=== PATIENT | male | born 1960 | race Caucasian/White ===

== ENCOUNTER 2017-05-15 11:02 | Inpatient (IN) | payer OTHER ==
[~2017-05-15] VITALS: Ht 180.3 cm; Wt 103.2 kg
[~2017-05-15 11:02] MED LIST: ALFU10TA2 PO; AMLO10TA2 PO; CARV25TA PO; CLONI1TA PO; ECOT81TA5 PO; FINA5TAB2 PO; HYDR200T3 PO; LATA5OPD OU; MAGN400C2 PO; PANT40TA2 PO; TRAZ-136 PO
[2017-05-15] MEDS ORDERED: VITA200015 PO (11:19)
[2017-05-15] MEDS ORDERED: ATOR80TA59 PO (11:19)
[2017-05-15] MEDS ORDERED: BRIL90TA PO (11:19)
[2017-05-15] MEDS ORDERED: HYDR-3719 PO (11:19)
[2017-05-15] MEDS ORDERED: ISOS60TA2 PO (11:19)
[2017-05-15] MEDS ORDERED: NS 1,000 ML IV ONE (11:30)
[2017-05-15] MEDS ORDERED: MORPHINE 4 MG/ML 1ML SYRINGE IV ONE ×2 (11:45→15:00)
[2017-05-15] MEDS ORDERED: ONDANSETRON 4MG/2ML VIAL (J2405) IV ONE (11:45)
[2017-05-15 11:48] LABS: BASO # 0.1 10^3/uL (0.0-0.2); BASO % 0.3 % (0.0-1.0); IMMATURE GRANULOCYTE % 0.5 % (0-0); LYMPH % 13.4 % (24.0-44.0); MEAN CORPUSCULAR HEMOGLOBIN 31.7 pg (27.0-33.0); MEAN CORPUSCULAR HGB CONC 34.8 g/dl (32.0-36.5); MEAN CORPUSCULAR VOLUME 91.1 fl (80.0-96.0); MONO # 1.1 10^3/uL (0.0-0.8); MONO % 7.5 % (0.0-5.0); NEUTROPHILS # 11.8 10^3/uL (1.8-7.7); NEUTROPHILS % 78.3 % (36.0-66.0); PLATELET COUNT, AUTOMATED 266 10^3/uL (150-450); RED CELL DISTRIBUTION WIDTH 13.9 % (11.5-14.5)
[2017-05-15 12:09] LABS: ALBUMIN 3.8 GM/DL (3.2-5.2); ALBUMIN/GLOBULIN RATIO 0.7 (1.00-1.93); BILIRUBIN,DIRECT 0.2 MG/DL (0.0-0.2); BILIRUBIN,TOTAL 0.8 MG/DL (0.2-1.0); CALCIUM LEVEL 9.6 MG/DL (8.5-10.1); CREATININE FOR GFR 1.43 MG/DL (0.70-1.30); GLOMERULAR FILTRATION RATE 54.5 (>56); POTASSIUM SERUM 3.2 MEQ/L (3.5-5.1); TOTAL PROTEIN 9.2 GM/DL (6.4-8.2)
[2017-05-15] MEDS ORDERED: METOCLOPRAMIDE INJ 10MG/2ML VIAL (J2765) IV ONE (13:30)
[2017-05-15] MEDS ORDERED: CIPROFLOXACIN 400 MG in APPROPRIATE DILUENT 1 EA IV ONE (13:30)
--- NOTE | 2017-05-15 15:09 | REP ---
SCROTAL ULTRASOUND: Real-time sonographic evaluation of the scrotum and contents performed. The testicles are normal in size, right testicle measuring 4.2 x 2.7 x 2.9 cm and left testicle 4.0 x 2.3 x 3.2 cm. Blood flow is seen in each testicle with duplex Doppler evaluation with no torsion, RI of each testicle is 0.40 with low resistance flow. There is somewhat increased blood flow to each testicle. Both the right and left epididymis are enlarged and heterogeneous with increased flow consistent with epididymitis and associated orchitis. The findings are more significant on the left than on the right. There is a small right hydrocele. There is a moderate left hydrocele. Adjacent to the tail of the left epididymis there appears to be a small amount of complex fluid, probably representing a small abscess 9 x 6 x 9 mm. There is a 2 mm cyst in the right epididymis and a 3 mm cyst in the left epididymis. IMPRESSION: Findings compatible with bilateral epididymitis and orchitis. The findings are more significant on the left than on the right, with an associated moderate left hydrocele and mild right hydrocele. Suspect small abscess adjacent to the tail of the left epididymis 9 x 6 x 9 mm. Signed by Woody Urbina MD 05/15/2017 03:16 P
[2017-05-15] MEDS ORDERED: ACETAMINOPHEN TAB 650MG DOSE (2X325MG) PO PRN (15:15)
[2017-05-15] MEDS ORDERED: POTASSIUM CHLORIDE 10 MEQ SR TABLET PO ONE (16:00)
[2017-05-15] MEDS ORDERED: GLUCAGON FOR INJ 1 MG VIAL (J1610) SC PRN (16:15)
[2017-05-15] MEDS ORDERED: GLUCOSE 4 GM CHEW TABLET PO PRN (16:15)
[2017-05-15] MEDS ORDERED: DEXTROSE 50% 50 ML SYRINGE IV PRN (16:15)
[2017-05-15] MEDS ORDERED: LASI80TA PO (16:55)
[2017-05-15] MEDS ORDERED: POTA10CA PO (16:55)
[2017-05-15] MEDS ORDERED: MITI1CAP PO (16:55)
--- NOTE | 2017-05-15 16:58 | HPE ---
DATE OF ADMISSION: 05/15/2017 PRIMARY CARE PHYSICIAN: [facility]. UROLOGIST: Paco Shaw MD CHIEF COMPLAINT: Fever, cloudy urine. HISTORY OF PRESENT ILLNESS: This is a 57-year-old male with past medical history significant for lupus, on chronic hydroxychloroquine, coronary artery disease (CAD), stents times three in June 2016, stage III chronic kidney disease, BPH , hypertension, type 2 diabetes, presents to the emergency room with complaints of fever for the past 2 days and chills. Patient was seen [address] Shaw for urine retention and was found to have post-void residual of 760 mL with recommendations to have a Oakley catheter and at some point to have a transurethral resection of the prostate (TURP) procedure due to enlarged prostate, and patient was to return for followup today, but has since developed fevers, subjective, at home, with chills, malodorous and cloudy urine with some blood clots, and presented to Dr. Shaw's office today, who prompted him to come to the emergency room (ER) for admission. Patient was found to be afebrile , white count elevated at 15,000, cloudy urine. Urinalysis was consistent with urinary tract infection (UTI) with positive nitrites, 3+ leukocyte esterase, pyuria, with too numerous to count white count, and bacteriuria of 2+, cloudy and red. Scrotal ultrasound to rule out epididymitis and orchitis was positive for bilateral epididymitis and orchitis, significant on the left, associated with moderate left hydrocele and mild right hydrocele and small abscess adjacent to the tail of the left epididymis measuring 9 x 6 x 9 mm. Per emergency room physician court assistant, Dr. Shaw wanted the patient admitted for intravenous ciprofloxacin, no surgical intervention at this time. He was initially found to be tachycardic, ventricular rate of 131. No EKG was done by the physician court assistant (PA) in the ER. EKG after IV fluid hydration of 2 liters was 91 and appears to be in sinus rhythm. Patient, otherwise, denies any nausea, vomiting. He complains of severe scrotal pain, erythema, especially with movement. He had taken some Tylenol at home with no improvement. Hospitalist service was called for admission for bilateral epididymitis and orchitis, urinary tract infection. PAST MEDICAL HISTORY: 1. Systemic lupus erythematosus. 2. Benign prostatic hypertrophy with urine retention requiring Oakley catheter placement 2 weeks ago. 3. Chronic kidney disease. No recent labs. Previous creatinine was in 2000, 0.7, current creatinine is 1.43. 4. CAD, stents times three. 5. Stage III chronic kidney disease. 6. Hypertension. 7. Type 2 diabetes. PAST SURGICAL HISTORY: 1. Lymph node resection, axilla, negative for lymphoma. 2. Right breast operation due to a soft nodule. 3. Left hip open reduction internal fixation (ORIF). 4. Left foot and ankle reconstruction. 5. Cartilage extraction of the right knee. 6. Hernia repair. 7. Cholecystectomy. 8. Adenoidectomy and tonsillectomy. ALLERGIES: PHENOBARBITAL, DILANTIN, and SULFA, strawberries and cherries. 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 Previous cigarette use, quit 19 years ago. Occasional social alcohol use with beer. FAMILY HISTORY: Mother of sepsis, hip fracture, age of 93. Father with CAD and lymphoma, at the age of 69. REVIEW OF SYSTEMS: Per history of present illness (HPI). 12-point system otherwise negative. PHYSICAL EXAMINATION: VITAL SIGNS: Temperature 97.8, pulse 91, respiratory rate 18, blood pressure 136/90, 95% on room air. GENERAL: Patient is awake, alert, oriented times three, answering questions appropriately. Pupils are round and reactive to light. Extraocular muscles are intact. Anicteric sclerae, no jaundice. No jugular venous distention. No thyromegaly. No cervical lymphadenopathy. LUNGS: Clear to auscultation. No wheezing, rales, or rhonchi. HEART: S1, S2, sinus rhythm. No murmurs, rubs, or gallops. ABDOMEN: Obese, soft, nontender, nondistended. Positive bowel sounds times four quadrants. No hepatosplenomegaly. Patient's testes and scrotum have significant erythema, no significant edema is noted, painful, Oakley catheter in place, cloudy urine with some clots. EXTREMITIES: Chronic venous stasis changes lower extremities with trace edema. SKIN: Patient has multiple ulcerated lesions along the back, which the patient states is chronic. LABORATORY DATA: White count 15, hemoglobin 14, hematocrit 42, platelet count 266, 78% neutrophils. Sodium 136, potassium 3.2, chloride 99, bicarbonate 26, BUN 15, creatinine 1.43, glucose of 109, lactic acid 1.6, calcium 9.6, total bilirubin 0.8, direct bilirubin 0.2, AST 36, ALT 63, alkaline phosphatase 146, total protein 9.2, albumin 3.8, lipase of 239, PSA 0.19. Urinalysis: Red, cloudy urine, patient has 2+ protein, 3+ blood, positive nitrites, 2 urobilinogen, 3+ leukocyte esterase, too numerous to count WBCs, too numerous to count RBCs, urine bacteria is 2+. IMAGING STUDIES: Scrotal ultrasound shows bilateral epididymitis and orchitis, more significant on the left than on the right with associated moderate left hydrocele and mild right hydrocele, small abscess adjacent to the tail of the left epididymis 9 x 6 x 9 mm. Chest x-ray: Normal chest. ASSESSMENT AND PLAN: This is a 57-year-old male with history of lupus erythematosus, chronic immunosuppressive therapy with hydroxychloroquine, coronary artery disease (CAD), stents times three in June 2016, chronic kidney disease (CKD) stage III, BPH, hypertension, diabetes, right breast lumpectomy, axillary lymph node resection, negative for lymphoma, left hip open reduction internal fixation (ORIF), hernia repair, presents to emergency room with history of urine retention, found to have 760 mL of postvoid residual at Dr. Shaw's office with recommendations for Oakley catheter, now returns with 2 day history of fever, chills, malodorous urine, cloudy urine, found to have a urinary tract infection (UTI), epididymitis and orchitis with small abscess. Per Dr. Shaw , urologist congressional representative, patient is to have IV antibiotics and no surgical intervention. Hospitalist service was called to admit. Patient will be assigned to Dr. Don Garcia at 7 p.m. on 05/15/2017. Patient will be admitted as an inpatient for two midnights for the following acute issues: 1. Bilateral epididymitis and orchitis/urinary tract infection, secondary to indwelling Oakley catheter from home/sepsis, secondary to urinary tract infection (UTI). Patient has been given IV ciprofloxacin, intravenous fluids. Await urine culture and sensitivities. Consult Dr. Shaw in case patient does not defervesce and with worsening abscess. No surgical intervention at this time. Elevate on two pillows and await further recommendations. 2. Chronic kidney disease. Obtain records from patient's primary care physician to determine patient's baseline creatinine. Avoid nephrotoxins. Renally dose all medications. Trial of IV fluids. 3. History of lupus erythematosus. No acute exacerbation at this time. Will need to discuss with his concrete pourer whether the hydroxychloroquine should be continued in light of acute infection. 4. Sinus tachycardia, most likely secondary to fever and sepsis. Heart rate of 130. Currently sinus rhythm. Responded to intravenous fluids. Continue patient's Coreg 25 twice a day. 5. Hypertension. Continue on amlodipine, Coreg. 6. History of coronary artery disease (CAD), stents. Continue on aspirin, atorvastatin, Coreg, isosorbide. 7. BPH with chronic catheter. Continue on finasteride. Defer to Dr. Shaw regarding transurethral resection of prostate (TURP) procedure at some point for BPH. 8. Hyperlipidemia. Continue on atorvastatin. 9. Vitamin D deficiency. Continue on vitamin D 2000 units daily. 10. History of reflux. Continue on Protonix. 11. Obesity. Body mass index (BMI) of 31, complicating acute issues. 12. Deep venous thrombosis (DVT) prophylaxis with Lovenox. Patient will be assigned to Dr. Don Garcia at 7 p.m. on 05/15/2017. [facility]ITAL[facility]
[2017-05-15 17:00] VITALS: BP 150/88
[2017-05-15] MEDS: HumaLOG INSULIN (NovoLOG) PER UNIT SC SCH (17:50)
[2017-05-15] MEDS: NS 1,000 ML IV SCH (18:17)
[2017-05-15] MEDS: ENOXAPARIN 40 MG/0.4 ML SYRINGE (J1650) SC SCH (18:17)
[2017-05-15] MEDS: PERCOCET 5MG/325MG TAB PO PRN ×2 (19:04→23:09)
[2017-05-15 20:00] VITALS: BP 132/90
--- NOTE | 2017-05-15 20:16 | ECGEPIP ---
Stationary ECG Study [facility] - ED Test Date: 2017-05-15 Pat Name: KEVIN DILL Department: Room: [place] [address] Gender: M Development Editor: kelvin : 1960 Requested By: ANGELA MCCORMACK PA-C. Order Number: [id number] Reading MD: Lopez Jones Measurements Intervals [place] Rate: 89 P: 16 MD: 157 QRS: 25 QRSD: 89 T: 29 QT: 385 QTc: 471 Interpretive Statements SINUS RHYTHM NSTTW ABNORMALITIES NO PRIORS FOR COMPARISON Electronically Signed On 05-15-2017 20:16:21 EST by Lopez Jones
[2017-05-15] MEDS ORDERED: HumaLOG INSULIN (NovoLOG) PER UNIT SC SCH (21:00)
[2017-05-15] MEDS: ONDANSETRON 4MG/2ML VIAL (J2405) IV PRN (21:24)
[2017-05-16] MEDS: CIPROFLOXACIN 400 MG in APPROPRIATE DILUENT 1 EA IV SCH ×2 (02:17→13:04)
[2017-05-16 04:00] VITALS: BP 152/90
[2017-05-16] MEDS: NS 1,000 ML IV SCH (04:36)
[2017-05-16] MEDS: PERCOCET 5MG/325MG TAB PO PRN ×4 (04:44→21:12)
[2017-05-16] MEDS: HumaLOG INSULIN (NovoLOG) PER UNIT SC SCH ×2 (07:25→11:54)
[2017-05-16 07:58] LABS: BASO % 0.4 % (0.0-1.0); EOS # 0.1 10^3/uL (0.0-0.50); EOS % 0.7 % (0.0-3.0); IMMATURE GRANULOCYTE % 0.9 % (0-0); LYMPH # 2.2 10^3/uL (1.5-4.5); LYMPH % 21.3 % (24.0-44.0); MEAN CORPUSCULAR HEMOGLOBIN 31.8 pg (27.0-33.0); MEAN CORPUSCULAR HGB CONC 34.6 g/dl (32.0-36.5); MEAN CORPUSCULAR VOLUME 91.7 fl (80.0-96.0); MONO # 0.8 10^3/uL (0.0-0.8); MONO % 7.3 % (0.0-5.0); NEUTROPHILS # 7.3 10^3/uL (1.8-7.7); NEUTROPHILS % 69.4 % (36.0-66.0); PLATELET COUNT, AUTOMATED 208 10^3/uL (150-450); RED CELL DISTRIBUTION WIDTH 14.2 % (11.5-14.5); WHITE BLOOD COUNT 10.5 10^3/uL (4.0-10.0)
[2017-05-16 08:16] LABS: ANION GAP 7 MEQ/L (8-16); BLOOD UREA NITROGEN 12 MG/DL (7-18); CALCIUM LEVEL 8.2 MG/DL (8.5-10.1); CARBON DIOXIDE LEVEL 26 MEQ/L (21-32); CHLORIDE LEVEL 105 MEQ/L (98-107); CREATININE FOR GFR 0.96 MG/DL (0.70-1.30); GLOMERULAR FILTRATION RATE > 60.0 (>56); GLUCOSE, FASTING 89 MG/DL (70-105); MAGNESIUM LEVEL 1.6 MG/DL (1.8-2.4); POTASSIUM SERUM 3.2 MEQ/L (3.5-5.1); SODIUM LEVEL 138 MEQ/L (136-145)
[2017-05-16] MEDS: ENOXAPARIN 40 MG/0.4 ML SYRINGE (J1650) SC SCH (08:51)
[2017-05-16] MEDS: ASPIRIN 81 MG ENTERIC TAB PO SCH (09:00)
[2017-05-16] MEDS: ISOSORBIDE MON. (IMDUR) 60 MG XR TAB PO SCH (09:00)
[2017-05-16] MEDS: amLODIPine 10 MG TAB PO SCH (09:00)
[2017-05-16] MEDS: VITAMIN D 1,000 INTERNATIONAL UNITS TABLET PO SCH (09:00)
[2017-05-16] MEDS: FINASTERIDE 5 MG TAB PO SCH (09:00)
[2017-05-16 12:20] VITALS: BP 151/88
[2017-05-16] MEDS ORDERED: POTASSIUM CHLORIDE 10 MEQ SR TABLET PO ONE (13:30)
--- NOTE | 2017-05-16 13:43 | IPNPDOC ---
Subjective Date Seen The patient was seen on 05/16/17. Subjective Chief Complaint/HPI The patient is a 57-year-old male admitted with a reason for visit of Orchitis Epididymitis. Events since last encounter Patient seen and examined at the bedside. States that the pain that he had in his lower abdomen, scrotal area is somewhat improved compared to yesterday. However, notes that he still feels some pain when he shifts his body. Does not offer any other acute complaints at this time. Objective Physical Examination General Exam: Positive: Alert, Cooperative, No Acute Distress ENT Exam: Positive: Atraumatic, Mucous membr. moist/pink Neck Exam: Negative: JVD Chest Exam: Positive: Clear to auscultation, Normal air movement Heart Exam: Positive: Rate Normal, Normal S1, Normal S2 Abdomen Exam: Positive: Soft, Negative: Tenderness Male Exam: Negative: Normal Genital Exam (+Oakley Catheter. Patient noted to have scrotal swelling, and tenderness to palpation of the testicles and scrotal skin. No superficial ulceration or wounds noted on the scrotum.) Extremity Exam: Negative: Tenderness, Swelling Psych Exam: Positive: Oriented x 3 Assessment /Plan Plan/VTE VTE Prophylaxis Ordered?: Yes Plan Bilateral epididymitis and orchitis/urinary tract infection Scrotal U/S imaging notable for small abscess adjacent to the tail of the left epididymis 9 x 6 x 9 mm Urology consulted--cont medical treatment with IV Cipro at this time, no surgical intervention indicated Urine culture pending WBC downward trending this AM, patient afebrile Patient notes that the discomfort/pain is somewhat improved today We will cont to monitor the patient at this time Acute Kidney Injury 2/2 Above, resolved s/p IVF Hydration Leukocytosis 2/2 Above WBC trending downward BPH with Chronic Oakley Catheter Cont Finasteride Urology on board Hx of SLE Hydroxychloroquine being held 2/2 acute infection Hypertension, stable Continue current regimen History of CAD s/p Stent x 3 in June 2016 Continue, ASA, Brilinta, statin, Coreg, isosorbide Dyslipidemia Continue statin Vitamin D deficiency Continue vitamin D supplementation GERD Continue Protonix Obesity Complicating medical care DVT prophylaxis Lovenox subcutaneous Disposition--pending clinical improvement VS, I&O, 24H, Fishbone Vital Signs/I&O Vital Signs Date Time Temp Pulse Resp B/P (MAP) Pulse Ox O2 Delivery O2 Flow Rate FiO2 12/15/17 12:20 97.8 82 16 151/88 (109) 96 Room Air I&O- Last 24 Hours up to 6 AM 05/17/17 06:00 Intake Total 920 ml Balance 920 ml Laboratory Data 24H LABS Laboratory Tests 2 05/15/17 16:02: Estimated Mean Plasma Glucose 126H, Hemoglobin A1c 6.0 05/15/17 17:29: Bedside Glucose (Misc Panel) 88 05/15/17 20:36: Bedside Glucose (Misc Panel) 87 05/16/17 07:21: Bedside Glucose (Misc Panel) 94 05/16/17 07:31: Immature Granulocyte % (Auto) 0.9H, White Blood Count 10.5H, Red Blood Count 3.87L, Hemoglobin 12.3#L, Hematocrit 35.5L, Mean Corpuscular Volume 91.7, Mean Corpuscular Hemoglobin 31.8, Mean Corpuscular Hemoglobin Concent 34.6, Red Cell Distribution Width 14.2, Platelet Count 208, Neutrophils (%) (Auto) 69.4H, Lymphocytes (%) (Auto) 21.3L, Monocytes (%) (Auto) 7.3H, Eosinophils (%) (Auto) 0.7, Basophils (%) (Auto) 0.4, Neutrophils # (Auto) 7.3, Lymphocytes # (Auto) 2.2, Monocytes # (Auto) 0.8, Eosinophils # (Auto) 0.1, Basophils # (Auto) 0.0, Immature Granulocyte # (Auto) 0.1H, Nucleated Red Blood Cells % (auto) 0.0, Anion Gap 7L, Glomerular Filtration Rate > 60.0, Blood Urea Nitrogen 12, Creatinine 0.96, Sodium Level 138, Potassium Level 3.2L, Chloride Level 105, Carbon Dioxide Level 26, Calcium Level 8.2L, Magnesium Level 1.6L 05/16/17 11:52: Bedside Glucose (Misc Panel) 105 CBC/BMP Laboratory Tests 05/16/17 07:31 Red Blood Count 3.87 L, Mean Corpuscular Volume 91.7, Mean Corpuscular Hemoglobin 31.8, Mean Corpuscular Hemoglobin Concent 34.6, Red Cell Distribution Width 14.2, Neutrophils (%) (Auto) 69.4 H, Lymphocytes (%) (Auto) 21.3 L, Monocytes (%) (Auto) 7.3 H, Eosinophils (%) (Auto) 0.7, Basophils (%) ( Auto) 0.4, Neutrophils # (Auto) 7.3, Lymphocytes # (Auto) 2.2, Monocytes # (Auto ) 0.8, Eosinophils # (Auto) 0.1, Basophils # (Auto) 0.0, Calcium Level 8.2 L Microbiology Microbiology 05/15/17 Blood Culture - Preliminary, Resulted No growth after 24 hours . All specim... 05/15/17 Blood Culture - Preliminary, Resulted No growth after 24 hours . All specim... 05/15/17 Urine Culture, Received Pending DANA ROWELL MD May 16, 2017 13:43
[2017-05-16] MEDS: MAG SULF 1GM/100ML (MAG RUN) 1 GM in APPROPRIATE DILUENT 1 EA IV SCH ×2 (14:00→15:00)
[2017-05-16] MEDS ORDERED: diphenhydrAMINE 25 MG CAP PO ONE (14:15)
[2017-05-16] MEDS: TICAGRELOR 90 MG TABLET (BRILINTA) PO SCH (20:16)
[2017-05-16] MEDS: PANTOPRAZOLE 40MG TAB (PROTONIX) PO SCH (20:16)
[2017-05-16] MEDS: CARVedilol 12.5 MG TAB PO SCH (20:17)
[2017-05-16] MEDS: ATORVASTATIN 20 MG TAB PO SCH ×2 (20:17→21:18)
[2017-05-16 21:00] VITALS: BP 145/83
[2017-05-17] MEDS: CIPROFLOXACIN 400 MG in APPROPRIATE DILUENT 1 EA IV SCH (02:24)
[2017-05-17] MEDS: PERCOCET 5MG/325MG TAB PO PRN ×4 (02:29→20:22)
[2017-05-17] MEDS ORDERED: diphenhydrAMINE 25 MG CAP PO ONE (03:45)
[2017-05-17] MEDS: BISACODYL 5 MG TAB PO PRN (03:51)
[2017-05-17 06:00] VITALS: BP 131/70
[2017-05-17 08:45] LABS: MEAN CORPUSCULAR HGB CONC 33.8 g/dl (32.0-36.5); MEAN CORPUSCULAR VOLUME 91.8 fl (80.0-96.0); PLATELET COUNT, AUTOMATED 233 10^3/uL (150-450); RED CELL DISTRIBUTION WIDTH 14.2 % (11.5-14.5); WHITE BLOOD COUNT 9.2 10^3/uL (4.0-10.0)
--- NOTE | 2017-05-17 08:51 | IPNPDOC ---
Date Seen The patient was seen on 05/17/17. Progress Note SUBJECTIVE: Patient is here for treatment of epididymoorchitis secondary to a Oakley catheter. Patient states he is feeling better, though still is sore in the left testicle. He still requires pain medication OBJECTIVE PHYSICAL EXAMINATION: VITAL SIGNS: Please see below. GENERAL: [Patient looks well and is in no signs of distress] HEENT: [Head is atraumatic, normocephalic] CARDIOVASCULAR: . RESPIRATORY: [Breathing without respiratory distress]. ABDOMINAL: [Abdomen soft, nontender, nondistended. The scrotum is supple. Not ecchymotic. Right testicle is normal. Left testicle swollen and tender] EXTREMITIES: [No swelling or edema] NEUROLOGICAL: [Grossly within normal limits] PSYCHOLOGICAL: [Does not appear depressed] LABORATORY DATA: Please see below. MICROBIOLOGY: Please see below. IMAGING: [Scrotal ultrasound was reviewed and consistent with epididymoorchitis] Echocardiogram: . DVT prophylaxis ordered?: [DVT prophylaxis per the medical service] ASSESSMENT AND PLAN: This is a [57]-year-old, white, male with with epididymoorchitis bilaterally resolving with antibiotics. PROBLEMS: 1. [Orchitis]: Continue antibiotics. 2. [Oakley catheter]: [Follow-up with urology as outpatient for definitive management]. 3. [Pain]: [Treat as appropriate]. DISPOSITION: . The culture is Escherichia coli pansensitive. The plan is to switch him to by mouth antibiotics as soon as possible if vital signs remain normal and white count continues to trend down. Patient will go home on oral antibiotics VS, I&O, 24H, Fran Vital Signs/I&O Vital Signs Date Time Temp Pulse Resp B/P (MAP) Pulse Ox O2 Delivery O2 Flow Rate FiO2 05/17/17 06:00 98.5 71 16 131/70 (90) 97 Room Air I&O- Last 24 Hours up to 6 AM 05/18/17 06:00 Output Total 950 ml Balance -950 ml Laboratory Data 24H LABS Laboratory Tests 2 05/16/17 11:52: Bedside Glucose (Misc Panel) 105 05/16/17 16:56: Bedside Glucose (Misc Panel) 113H 05/17/17 08:34: Microbiology Microbiology 05/15/17 Blood Culture - Preliminary, Resulted No growth after 24 hours . All specim... 05/15/17 Blood Culture - Preliminary, Resulted No growth after 24 hours . All specim... 05/15/17 Urine Culture - Final, Complete Escherichia Coli ZO LEHMAN MD May 17, 2017 08:51
[2017-05-17] MEDS: TICAGRELOR 90 MG TABLET (BRILINTA) PO SCH ×2 (09:09→20:22)
[2017-05-17] MEDS: PANTOPRAZOLE 40MG TAB (PROTONIX) PO SCH ×2 (09:09→20:22)
[2017-05-17] MEDS: ISOSORBIDE MON. (IMDUR) 60 MG XR TAB PO SCH (09:09)
[2017-05-17] MEDS: FINASTERIDE 5 MG TAB PO SCH (09:10)
[2017-05-17] MEDS: ASPIRIN 81 MG ENTERIC TAB PO SCH (09:10)
[2017-05-17] MEDS: CARVedilol 12.5 MG TAB PO SCH ×2 (09:10→20:22)
[2017-05-17] MEDS: amLODIPine 10 MG TAB PO SCH (09:10)
[2017-05-17] MEDS: ENOXAPARIN 40 MG/0.4 ML SYRINGE (J1650) SC SCH (09:11)
[2017-05-17] MEDS: VITAMIN D 1,000 INTERNATIONAL UNITS TABLET PO SCH (09:11)
[2017-05-17] MEDS: CEFTRIAXONE SOD 1 GM in APPROPRIATE DILUENT 1 EA IV SCH (09:27)
[2017-05-17 09:29] LABS: ANION GAP 7 MEQ/L (8-16); BLOOD UREA NITROGEN 13 MG/DL (7-18); CALCIUM LEVEL 8.9 MG/DL (8.5-10.1); CARBON DIOXIDE LEVEL 26 MEQ/L (21-32); CHLORIDE LEVEL 106 MEQ/L (98-107); CREATININE FOR GFR 0.94 MG/DL (0.70-1.30); GLOMERULAR FILTRATION RATE > 60.0 (>56); GLUCOSE, FASTING 96 MG/DL (70-105); POTASSIUM SERUM 3.5 MEQ/L (3.5-5.1); SODIUM LEVEL 139 MEQ/L (136-145)
--- NOTE | 2017-05-17 14:09 | IPNPDOC ---
Subjective Date Seen The patient was seen on 05/17/17. Subjective Chief Complaint/HPI The patient is a 57-year-old male admitted with a reason for visit of Orchitis Epididymitis. Events since last encounter Patient seen and examined at the bedside. No study is still having pain in his left testicle upon movement, but notes that this is improved compared to before. Does still reiterate that he has some pain on movement/ambulation in the scrotal area, however this is improving with by mouth analgesics. Objective Physical Examination General Exam: Positive: Alert, Cooperative, No Acute Distress ENT Exam: Positive: Atraumatic, Mucous membr. moist/pink Neck Exam: Negative: JVD Chest Exam: Positive: Clear to auscultation, Normal air movement Heart Exam: Positive: Rate Normal, Normal S1, Normal S2 Abdomen Exam: Positive: Soft, Negative: Tenderness Male Exam: Positive: Normal Genital Exam (+Oakley Catheter. Patient noted to have scrotal swelling, and tenderness to palpation of the left testicle > right. Scrotal skin appears supple with no superficial ulceration or wounds noted.) Extremity Exam: Negative: Tenderness, Swelling Psych Exam: Positive: Oriented x 3 Assessment /Plan Plan/VTE VTE Prophylaxis Ordered?: Yes Plan Bilateral epididymitis and orchitis/urinary tract infection Scrotal U/S imaging notable for small abscess adjacent to the tail of the left epididymis 9 x 6 x 9 mm Urine culture notable for jeffrey-sensitive E. Coli WBC has normalized this AM, patient afebrile Discomfort/pain continues to improve today We will cont to monitor the patient on IV Abx at this time, and switch to PO Abx + D/C in the next 24-48hrs Acute Kidney Injury 2/2 Above, resolved s/p IVF Hydration Leukocytosis 2/2 Above, resolved BPH with Chronic Oakley Catheter Cont Finasteride Urology on board Hx of SLE Hydroxychloroquine being held 2/2 acute infection Hypertension, stable Continue current regimen History of CAD s/p Stent x 3 in June 2016 Continue, ASA, Brilinta, statin, Coreg, isosorbide Dyslipidemia Continue statin Vitamin D deficiency Continue vitamin D supplementation GERD Continue Protonix Obesity Complicating medical care DVT prophylaxis Lovenox subcutaneous Disposition--Anticipate switch to PO Abx for a completion of 10-14 day trial and DC within 24-48hrs. VS, I&O, 24H, Fishbone Vital Signs/I&O Vital Signs Date Time Temp Pulse Resp B/P (MAP) Pulse Ox O2 Delivery O2 Flow Rate FiO2 05/17/17 10:00 18 Room Air 05/17/17 09:10 71 131/70 05/17/17 06:00 98.5 97 I&O- Last 24 Hours up to 6 AM 05/18/17 06:00 Intake Total 560 ml Output Total 950 ml Balance -390 ml Laboratory Data 24H LABS Laboratory Tests 2 05/16/17 16:56: Bedside Glucose (Misc Panel) 113H 05/17/17 08:34: Nucleated Red Blood Cells % (auto) 0.0, Anion Gap 7L, Glomerular Filtration Rate > 60.0, Blood Urea Nitrogen 13, Creatinine 0.94, Sodium Level 139, Potassium Level 3.5, Chloride Level 106, Carbon Dioxide Level 26, Calcium Level 8.9 05/17/17 12:05: Bedside Glucose (Misc Panel) 116H CBC/BMP Laboratory Tests 05/17/17 08:34 Red Blood Count 3.77 L, Mean Corpuscular Volume 91.8, Mean Corpuscular Hemoglobin 31.0, Mean Corpuscular Hemoglobin Concent 33.8, Red Cell Distribution Width 14.2, Calcium Level 8.9 Microbiology Microbiology 05/15/17 Blood Culture - Preliminary, Resulted No Growth after 48 hours. All Specime... 05/15/17 Blood Culture - Preliminary, Resulted No Growth after 48 hours. All Specime... 05/15/17 Urine Culture - Final, Complete Escherichia Coli DANA ROWELL MD May 17, 2017 14:09
[2017-05-17 14:28] VITALS: BP 147/92
[2017-05-17] MEDS: ATORVASTATIN 20 MG TAB PO SCH (20:21)
[2017-05-17 20:42] VITALS: BP 146/92
[2017-05-18] MEDS: PERCOCET 5MG/325MG TAB PO PRN ×2 (03:47→08:50)
[2017-05-18 05:42] LABS: MEAN CORPUSCULAR HEMOGLOBIN 31.2 pg (27.0-33.0); MEAN CORPUSCULAR VOLUME 91.6 fl (80.0-96.0); PLATELET COUNT, AUTOMATED 233 10^3/uL (150-450); WHITE BLOOD COUNT 6.7 10^3/uL (4.0-10.0)
[2017-05-18 05:49] VITALS: BP 138/85
[2017-05-18 05:56] LABS: ANION GAP 9 MEQ/L (8-16); BLOOD UREA NITROGEN 12 MG/DL (7-18); CALCIUM LEVEL 8.4 MG/DL (8.5-10.1); CARBON DIOXIDE LEVEL 25 MEQ/L (21-32); CHLORIDE LEVEL 106 MEQ/L (98-107); CREATININE FOR GFR 0.96 MG/DL (0.70-1.30); GLOMERULAR FILTRATION RATE > 60.0 (>56); GLUCOSE, FASTING 94 MG/DL (70-105); POTASSIUM SERUM 3.6 MEQ/L (3.5-5.1); SODIUM LEVEL 140 MEQ/L (136-145)
[2017-05-18] MEDS: ASPIRIN 81 MG ENTERIC TAB PO SCH (08:21)
[2017-05-18] MEDS: PANTOPRAZOLE 40MG TAB (PROTONIX) PO SCH (08:21)
[2017-05-18] MEDS: ENOXAPARIN 40 MG/0.4 ML SYRINGE (J1650) SC SCH (08:21)
[2017-05-18] MEDS: VITAMIN D 1,000 INTERNATIONAL UNITS TABLET PO SCH (08:21)
[2017-05-18] MEDS: amLODIPine 10 MG TAB PO SCH (08:22)
[2017-05-18] MEDS: ISOSORBIDE MON. (IMDUR) 60 MG XR TAB PO SCH (08:22)
[2017-05-18 08:23] VITALS: BP 138/85
[2017-05-18] MEDS: CEFTRIAXONE SOD 1 GM in APPROPRIATE DILUENT 1 EA IV SCH (08:23)
[2017-05-18] MEDS: FINASTERIDE 5 MG TAB PO SCH (08:23)
[2017-05-18] MEDS: CARVedilol 12.5 MG TAB PO SCH (08:23)
[2017-05-18] MEDS: TICAGRELOR 90 MG TABLET (BRILINTA) PO SCH (08:23)
[2017-05-18] MEDS: BISACODYL 5 MG TAB PO PRN (08:32)
[2017-05-18] MEDS: ONDANSETRON 4MG/2ML VIAL (J2405) IV PRN (09:29)
[2017-05-18] MEDS ORDERED: NITROGLYCERIN 0.4 MG SUBL TABLET As Ordered ONE (09:46)
[2017-05-18 09:50] VITALS: BP 72/49
[2017-05-18 10:17] VITALS: BP 119/73
[2017-05-18 10:29] LABS: BASO # 0.1 10^3/uL (0.0-0.2); BASO % 0.7 % (0.0-1.0); EOS # 0.2 10^3/uL (0.0-0.50); EOS % 2.3 % (0.0-3.0); LYMPH # 1.7 10^3/uL (1.5-4.5); LYMPH % 24.7 % (24.0-44.0); MEAN CORPUSCULAR HEMOGLOBIN 31.1 pg (27.0-33.0); MEAN CORPUSCULAR HGB CONC 33.8 g/dl (32.0-36.5); MEAN CORPUSCULAR VOLUME 92.1 fl (80.0-96.0); MONO # 0.6 10^3/uL (0.0-0.8); MONO % 8.2 % (0.0-5.0); NEUTROPHILS # 4.4 10^3/uL (1.8-7.7); NEUTROPHILS % 63.1 % (36.0-66.0); PLATELET COUNT, AUTOMATED 257 10^3/uL (150-450); RED CELL DISTRIBUTION WIDTH 14.1 % (11.5-14.5)
[2017-05-18] MEDS ORDERED: NITROGLYCERIN 0.4 MG SUBL TABLET SL PRN (10:30)
[2017-05-18 10:39] LABS: VENOUS BASE EXCESS -0.8 (-2.0-2.0); VENOUS O2 SATURATION 98.8 % (60.0-80.0); VENOUS PARTIAL PRESSURE CO2 36.2 mmHg (38.0-50.0); VENOUS PARTIAL PRESSURE O2 148.3 mmHg (30.0-50.0); VENOUS STANDARD HCO3 23.8 MEQ/L; VENOUS TOTAL CO2 24.3 MEQ/L (24.0-28.0)
[2017-05-18 10:53] LABS: ALBUMIN 2.9 GM/DL (3.2-5.2); ALBUMIN/GLOBULIN RATIO 0.76 (1.00-1.93); ALKALINE PHOSPHATASE 113 U/L (45-117); ALT/SGPT 35 U/L (12-78); ANION GAP 11 MEQ/L (8-16); AST/SGOT 20 U/L (7-37); BILIRUBIN,TOTAL 0.3 MG/DL (0.2-1.0); BLOOD UREA NITROGEN 12 MG/DL (7-18); CALCIUM LEVEL 8.3 MG/DL (8.5-10.1); CARBON DIOXIDE LEVEL 24 MEQ/L (21-32); CHLORIDE LEVEL 105 MEQ/L (98-107); CREATININE FOR GFR 1.04 MG/DL (0.70-1.30); GLOMERULAR FILTRATION RATE > 60.0 (>56); GLUCOSE, FASTING 115 MG/DL (70-105); MAGNESIUM LEVEL 1.4 MG/DL (1.8-2.4); POTASSIUM SERUM 3.6 MEQ/L (3.5-5.1); SODIUM LEVEL 140 MEQ/L (136-145); TOTAL PROTEIN 6.7 GM/DL (6.4-8.2)
[2017-05-18] MEDS: MAG SULF 1GM/100ML (MAG RUN) 1 GM in APPROPRIATE DILUENT 1 EA IV SCH ×2 (11:42→12:46)
[2017-05-18] MEDS ORDERED: CIPR-250 PO (11:49)
[2017-05-18 12:00] VITALS: BP 129/79
--- NOTE | 2017-05-18 15:12 | ECGEPIP ---
Stationary ECG Study [facility] Test Date: 2017-05-18 Pat Name: KEVIN DILL Department: Room: [place] [address] Gender: M Chief Embalmer: : 1960 Requested By: DANA ROWELL Order Number: [id number] Reading MD: Nehemias Carroll Measurements Intervals [place] Rate: 57 P: 9 IA: 165 QRS: 65 QRSD: 91 T: 50 QT: 448 QTc: 439 Interpretive Statements SINUS BRADYCARDIA Early repolarization. Electronically Signed On 05-18-2017 15:11:51 EST by Nehemias Carroll
--- NOTE | 2017-05-18 16:27 | DS.PDOC ---
Discharge Summary General Date of Admission May 15, 2017 at 15:14 Date of Discharge 05/18/17 Specialist/Consultants Involve Dr. Shaw of Urology, Dr. Irving of Urology, and Dr. Carroll of Cardiology. Discharge Summary PROCEDURES PERFORMED DURING STAY: None. ADMITTING/DISCHARGE DIAGNOSES: Bilateral epididymitis and orchitis Chest pain r/o ACS COMPLICATIONS/CHIEF COMPLAINT: Orchitis Epididymitis. HISTORY OF PRESENT ILLNESS: . 57-year-old male with past medical history of SLE, hypertension, obesity, BPH with urinary retention status post Oakley catheter placement 2 weeks ago, and coronary artery disease status post stent placement 3 in June 2016 presented to the ER with a chief complaint of fevers, chills, malodorous and cloudy urine with blood clots present in the Oakley catheter. The patient was initially seen by the urology physician in the outpatient setting, and was sent to the ER for further evaluation. A scrotal ultrasound done in the ER revealed epididymitis and orchitis which was positive for bilateral epididymitis and orchitis significant on the left, and associated with moderate left hydrocele and a mild right hydrocele and small abscess adjacent to the tail of the left epididymis measuring 9 x 6 x 9 mm. Urology was consulted in the ER, and deemed that no surgical intervention was necessary at this time, and recommended IV antibiotic therapy. The patient was admitted to the hospitalist service for further management. During hospitalization, the patient was continued on IV antibiotics, and the patient's clinical condition improved. The patient was noted to be afebrile, and the patient's white blood cell count subsequently normalized. The patient noted that the swelling of the scrotum, and the pain in his left testicle was improving with the aforementioned therapy, and he was tentatively scheduled to be discharged on by mouth antibiotics with outpatient follow-up with urology. However, on the morning of 05/18/17 the patient complained of crushing, dull substernal chest pain, 10/10 in intensity, and associated with shortness of breath. The patient stated that the pain was similar to when he required a cardiac catheterization and stenting in June 2016. Upon evaluation the patient was noted to be hypotensive with blood pressure in the 80s over 50s. In addition, the patient was noted to have sinus bradycardia with a heart rate in the 50s. An EKG revealed no acute ST changes, and initial troponin markers were noted to be negative. The patient's blood pressure and heart rate did improve with IV fluid hydration. In addition, the patient's chest pain was improved following sublingual nitroglycerin administration 3 doses. The case was discussed with Dr. Carroll of cardiology here, and he has recommended to transfer the patient to [facility] for further evaluation with a cardiac catheterization. I did discuss the case with Dr.Migeed enriquez at [facility], who has graciously accepted the patient for further workup. At this time, the patient will be transferred to [facility] for a higher level of care. DISCHARGE MEDICATIONS: Please see below. ALLERGIES: Please see below. PHYSICAL EXAMINATION ON DISCHARGE: VITAL SIGNS: Please see below. General Exam: Positive: Alert, Cooperative, No Acute Distress ENT Exam: Positive: Atraumatic, Mucous membr. moist/pink Neck Exam: Negative: JVD Chest Exam: Positive: Clear to auscultation, Normal air movement Heart Exam: Positive: Rate Normal, Normal S1, Normal S2 Abdomen Exam: Positive: Soft, Negative: Tenderness Male Exam: Positive: Normal Genital Exam (+Oakley Catheter. Patient noted to have scrotal swelling, and tenderness to palpation of the left testicle > right. Scrotal skin appears supple with no superficial ulceration or wounds noted.) Extremity Exam: Negative: Tenderness, Swelling Psych Exam: Positive: Oriented x 3 LABORATORY DATA: Please see below. IMAGING: SCROTAL ULTRASOUND: Real-time sonographic evaluation of the scrotum and contents performed. The testicles are normal in size, right testicle measuring 4.2 x 2.7 x 2.9 cm and left testicle 4.0 x 2.3 x 3.2 cm. Blood flow is seen in each testicle with duplex Doppler evaluation with no torsion, RI of each testicle is 0.40 with low resistance flow. There is somewhat increased blood flow to each testicle. Both the right and left epididymis are enlarged and heterogeneous with increased flow consistent with epididymitis and associated orchitis. The findings are more significant on the left than on the right. There is a small right hydrocele. There is a moderate left hydrocele. Adjacent to the tail of the left epididymis there appears to be a small amount of complex fluid, probably representing a small abscess 9 x 6 x 9 mm. There is a 2 mm cyst in the right epididymis and a 3 mm cyst in the left epididymis. IMPRESSION: Findings compatible with bilateral epididymitis and orchitis. The findings are more significant on the left than on the right, with an associated moderate left hydrocele and mild right hydrocele. Suspect small abscess adjacent to the tail of the left epididymis 9 x 6 x 9 mm. ACTIVITY: As tolerated. DIET: . Nothing by mouth DISCHARGE PLAN: DISPOSITION: er To Acute Hosp. DISCHARGE INSTRUCTIONS: Transferred to [facility] for cardiac catheterization/higher level of care Complete antibiotic trial for epididymitis, orchitis as prescribed Follow-up with primary care physician, urology within 1 week following discharge from the hospital DISCHARGE CONDITION: Stable. TIME SPENT ON DISCHARGE: Greater than 30 minutes. Vital Signs/I&Os Vital Signs Date Time Temp Pulse Resp B/P (MAP) Pulse Ox O2 Delivery O2 Flow Rate FiO2 05/18/17 12:00 97.9 62 18 129/79 (96) 96 Nasal Cannula 3.0 I&O- Last 24 Hours up to 6 AM 05/19/17 06:00 Intake Total 100 ml Output Total 1400 ml Balance -1300 ml Laboratory Data Labs 24H Laboratory Tests 2 05/17/17 20:06: Bedside Glucose (Misc Panel) 105 05/18/17 05:28: Nucleated Red Blood Cells % (auto) 0.0, Anion Gap 9, Glomerular Filtration Rate > 60.0, Blood Urea Nitrogen 12, Creatinine 0.96, Sodium Level 140, Potassium Level 3.6, Chloride Level 106, Carbon Dioxide Level 25, Calcium Level 8.4L 05/18/17 09:31: Bedside Glucose (Misc Panel) 118H 05/18/17 10:01: Nucleated Red Blood Cells % (auto) 0.0, Anion Gap 11, Glomerular Filtration Rate > 60.0, Blood Urea Nitrogen 12, Creatinine 1.04, Sodium Level 140, Potassium Level 3.6, Chloride Level 105, Carbon Dioxide Level 24, Calcium Level 8.3L, Immature Granulocyte % (Auto) 1.0H, White Blood Count 7.0, Red Blood Count 3.92L, Hemoglobin 12.2L, Hematocrit 36.1L, Mean Corpuscular Volume 92.1, Mean Corpuscular Hemoglobin 31.1, Mean Corpuscular Hemoglobin Concent 33.8, Red Cell Distribution Width 14.1, Platelet Count 257, Neutrophils (%) (Auto) 63.1, Lymphocytes (%) (Auto) 24.7, Monocytes (%) (Auto) 8.2H, Eosinophils (%) (Auto) 2.3, Basophils (%) (Auto) 0.7, Neutrophils # (Auto) 4.4, Lymphocytes # (Auto) 1.7, Monocytes # (Auto) 0.6, Eosinophils # (Auto) 0.2, Basophils # (Auto) 0.1, Immature Granulocyte # (Auto) 0.1H, Blood Gas Bicarbonate Standard 23.8, Venous Blood pH 7.424, Venous Blood Partial Pressure CO2 36.2L, Venous Blood Partial Pressure O2 148.3H, Venous Blood Total Carbon Dioxide 24.3, Venous Blood HCO3 23.2, Venous Blood Oxygen Saturation 98.8H, Venous Blood Base Excess -0.8, Aspartate Amino Transf (AST/SGOT) 20, Alanine Aminotransferase (ALT/SGPT) 35, Total Creatine Kinase 70, Alkaline Phosphatase 113, Total Bilirubin 0.3#, Total Protein 6.7#, Albumin 2.9#L, Magnesium Level 1.4L, Creatine Kinase MB 1.2, Creatine Kinase MB Relative Index 1.71, Troponin I < 0.02, C-Reactive Protein, Quantitative 4.50H, Albumin/Globulin Ratio 0.76L 05/18/17 10:04: Lactic Acid Level 1.8 05/18/17 12:17: Bedside Glucose (Misc Panel) 104 CBC/BMP Laboratory Tests 05/18/17 05:28 Red Blood Count 3.69 L, Mean Corpuscular Volume 91.6, Mean Corpuscular Hemoglobin 31.2, Mean Corpuscular Hemoglobin Concent 34.0, Red Cell Distribution Width 14.0, Calcium Level 8.4 L 05/18/17 10:01 Red Blood Count 3.92 L, Mean Corpuscular Volume 92.1, Mean Corpuscular Hemoglobin 31.1, Mean Corpuscular Hemoglobin Concent 33.8, Red Cell Distribution Width 14.1, Calcium Level 8.3 L, Neutrophils (%) (Auto) 63.1, Lymphocytes (%) (Auto) 24.7, Monocytes (%) (Auto) 8.2 H, Eosinophils (%) (Auto) 2.3, Basophils (%) (Auto) 0.7, Neutrophils # (Auto) 4.4, Lymphocytes # (Auto) 1.7, Monocytes # (Auto) 0.6, Eosinophils # (Auto) 0.2, Basophils # (Auto) 0.1, Aspartate Amino Transf (AST/SGOT) 20, Alanine Aminotransferase (ALT/SGPT) 35, Total Creatine Kinase 70, Alkaline Phosphatase 113, Total Bilirubin 0.3 #, Total Protein 6.7 #, Albumin 2.9 #L FSBS Laboratory Tests Test 05/17/17 20:06 05/18/17 09:31 05/18/17 12:17 Range/Units Bedside Glucose (Misc Panel) 105 118 104 70-105 MG/DL Microbiology Microbiology 05/18/17 Blood Culture, Received Pending 05/18/17 Blood Culture, Received Pending 05/15/17 Blood Culture - Preliminary, Resulted No Growth after 72 hours. All specime... 05/15/17 Blood Culture - Preliminary, Resulted No Growth after 72 hours. All specime... 05/15/17 Urine Culture - Final, Complete Escherichia Coli Discharge Medications Scheduled (Magnesium) 400 Mg Cap, 400 MG PO DAILY, (Reported) (Mitigare) 0.6 Mg Cap, 0.6 MG PO DAILY, (Reported) Alfuzosin Hydrochloride (Alfuzosin HCl ER) 10 Mg Tab, 10 MG PO DAILY, (Reported) Amlodipine Besylate (Amlodipine Besylate) 10 Mg Tab, 10 MG PO DAILY, (Reported) Aspirin (Ecotrin Low Strength) 81 Mg Tab, 81 MG PO DAILY, (Reported) Atorvastatin Calcium (Atorvastatin Calcium) 80 Mg Tab, 80 MG PO QHS, (Reported) Carvedilol (Carvedilol) 25 Mg Tab, 25 MG PO BID, (Reported) Cholecalciferol (Vitamin D) 2,000 Unit Tab, 2,000 UNITS PO DAILY, (Reported) Ciprofloxacin HCl (Cipro) 250 Mg Tab, 250 MG PO BID Finasteride (Finasteride) 5 Mg Tab, 5 MG PO DAILY, (Reported) Furosemide (Lasix) 80 Mg Tab, 40 MG PO DAILY, (Reported) Hydroxychloroquine Sulfate (Hydroxychloroquine Sulfat) 200 Mg Tab, 200 MG PO BID , (Reported) Isosorbide Mononitrate (Isosorbide Mononitrate ER) 60 Mg Tab, 60 MG PO DAILY, ( Reported) Latanoprost (Latanoprost) 50 Drop/2.5 Ml Soln, 1 DROP OU QHS, (Reported) Pantoprazole Sodium (Pantoprazole Sodium) 40 Mg Tab, 40 MG PO BID, (Reported) Potassium Chloride (Klor-Con M10) 10 Meq Tabcr, 10 MEQ PO DAILY, (Reported) Ticagrelor Base (Brilinta) 90 Mg Tab, 90 MG PO BID, (Reported) Trazodone HCl (Trazodone HCl) 100 Mg Tab, 200 MG PO QHS, (Reported) Scheduled PRN Acetaminophen/Hydrocodone (Hydrocodone/Acetaminophen 10-325 mg) 1 Tab Tab, 1 TAB PO Q6H PRN for PAIN, (Reported) Allergies Coded Allergies: Sulfa Antibiotics (Verified Allergy, Severe, 05/20/16) Swelling Phenytoin (Verified Allergy, Intermediate, 05/20/16) hives Phenobarbital (Verified Allergy, Unknown, 05/20/16) Hives [place] (Unverified Allergy, Unknown, 05/20/16) DANA ROWELL MD May 18, 2017 16:27
== END 2017-05-18 14:19 | disposition short-term general hospital (02) | DRG 501 ==
LOC: M ED 11:02 → M ED INP 15:14 → M MS4PR 17:00 → M ICU 05-18 10:18
PROVIDERS: ADMIT General Practice; ATTEND Internal Medicine
DX: N45.3 Epididymo-orchitis (principal); I95.9 Hypotension, unspecified; M32.9 Systemic lupus erythematosus, unspecified; N39.0 Urinary tract infection, site not specified; E55.9 Vitamin D deficiency, unspecified; N18.3 Chronic kidney disease, stage 3 (moderate); E11.9 Type 2 diabetes mellitus without complications; I25.10 Atherosclerotic heart disease of native coronary artery without angina pectoris; B96.20 Unspecified Escherichia coli [E. coli] as the cause of diseases classified elsewhere; I12.9 Hypertensive chronic kidney disease with stage 1 through stage 4 chronic kidney disease, or unspecified chronic kidney disease; E66.9 Obesity, unspecified; K21.9 Gastro-esophageal reflux disease without esophagitis; E78.5 Hyperlipidemia, unspecified; N40.1 Benign prostatic hyperplasia with lower urinary tract symptoms; Z96.0 Presence of urogenital implants; Z90.49 Acquired absence of other specified parts of digestive tract; Z95.9 Presence of cardiac and vascular implant and graft, unspecified; Z88.2 Allergy status to sulfonamides; Z91.018 Allergy to other foods; Z88.8 Allergy status to other drugs, medicaments and biological substances; Z79.82 Long term (current) use of aspirin; Z79.899 Other long term (current) drug therapy; Z87.891 Personal history of nicotine dependence; Z68.31 Body mass index [BMI] 31.0-31.9, adult

== ENCOUNTER → 2017-07-10 | Outpatient (REF) | payer OTHER ==
[2017-07-10 14:25] LABS: IMMUNOGLOBULIN E 7.4 IU/ML (<100)
[2017-07-15 14:13] LABS: D001-IgE D pteronyssinus <0.10 kU/L (Class 0); E001-IgE Cat Epith/Dander < 0.10 kU/L (Class 0); E005-IgE Dog Dander < 0.10 kU/L (Class 0); G002-IgE Bermuda Grass < 0.10 kU/L (Class 0); G008-IgE Kentucky Bluegrass < 0.10 kU/L (Class 0); M001-IgE Penicillium chrysogen < 0.10 kU/L (Class 0); M002 IgE Cladosporium herbaru < 0.10 kU/L (Class 0); M003 IgE Aspergillus fumigatu < 0.10 kU/L (Class 0); M006-IgE Alternaria alternata < 0.10 kU/L (Class 0); T001-IgE Maple/Box Elder < 0.10 kU/L (Class 0); T003-IgE Common Silver Birch < 0.10 kU/L (Class 0); T006-IgE Cedar, Mountain < 0.10 kU/L (Class 0); T007-IgE Oak, White < 0.10 kU/L (Class 0); T008-IgE Elm, American < 0.10 kU/L (Class 0); T015-IgE Ash, White < 0.10 kU/L (Class 0); T041-IgE Hickory, White < 0.10 kU/L (Class 0); T070-IgE White Mulberry < 0.10 kU/L (Class 0); W001-IgE Ragweed, Short < 0.10 kU/L (Class 0); W009-IgE Plantain, English < 0.10 kU/L (Class 0); W014-IgE Pigweed, Rough < 0.10 kU/L (Class 0); W018-IgE Sheep Sorrel < 0.10 kU/L (Class 0)
== END ==
LOC: M LAB REF 13:06
DX: J45.50 Severe persistent asthma, uncomplicated (principal)
CPT/HCPCS: 82785

== ENCOUNTER → 2017-07-31 | Outpatient (CLI) | payer OTHER ==
[2017-07-31 18:33] LABS: BASO # 0.1 10^3/uL (0.0-0.2); BASO % 0.5 % (0.0-1.0); EOS # 0.1 10^3/uL (0.0-0.50); EOS % 0.8 % (0.0-3.0); EOSINOPHIL,TOTAL CALCULATED 100 mm3 (0-740); HEMATOCRIT 38.9 % (42.0-52.0); HEMOGLOBIN 12.8 g/dl (14.0-18.0); IMMATURE GRANULOCYTE % 0.4 % (0-3.0); LYMPH # 2.6 10^3/uL (1.5-4.5); MEAN CORPUSCULAR HEMOGLOBIN 29.7 pg (27.0-33.0); MEAN CORPUSCULAR HGB CONC 32.9 g/dl (32.0-36.5); MEAN CORPUSCULAR VOLUME 90.3 fl (80.0-96.0); MONO % 9.5 % (0.0-5.0); NEUTROPHILS % 64.8 % (36.0-66.0); PLATELET COUNT, AUTOMATED 252 10^3/uL (150-450); RED BLOOD COUNT 4.31 10^6/uL (4.30-6.10); RED CELL DISTRIBUTION WIDTH 12.8 % (11.5-14.5); WHITE BLOOD COUNT 10.8 10^3/uL (4.0-10.0)
== END ==
LOC: M SMT 14:36
DX: J45.50 Severe persistent asthma, uncomplicated (principal)
CPT/HCPCS: 85048

== ENCOUNTER → 2019-01-25 | Outpatient (REF) | payer OTHER ==
[~2019-01-25] MED LIST changes: -ALFU10TA2 PO; +ALFU10TA3 PO; -AMLO10TA2 PO; +AMLO10TA5 PO; +ATOR80TA59 PO; +BRIL90TA PO; +CIPR-250 PO; +GABA-843 PO; +HYDR-3719 PO; +ISOS60TA2 PO; +KLOR10TA76 PO; +LASI80TA3 PO; +LATA0.0013 OU; -LATA5OPD OU; +MITI1CAP PO; -PANT40TA2 PO; +PANT40TA3 PO; +PLAV1TAB2 PO; -TRAZ-136 PO; +TRAZ-257 PO; +VITA200015 PO; +XALA0.007 OU
[2019-01-26 14:22] LABS: APPEARANCE, URINE CLEAR (CLEAR); BACTERIA, URINE AUTO NEGATIVE (NEGATIVE); BILIRUBIN, URINE AUTO NEGATIVE (NEGATIVE); BLOOD, URINE BLOOD NEGATIVE (NEGATIVE); COLOR, URINE STRAW (YELLOW); GLUCOSE, URINE (UA) AUTO NEGATIVE (NEGATIVE); KETONE, URINE AUTO NEGATIVE (NEGATIVE); LEUKOCYTE ESTERASE, URINE AUTO NEGATIVE (NEGATIVE); NITRITE, URINE AUTO NEGATIVE (NEGATIVE); PROTEIN, URINE AUTO NEGATIVE (NEGATIVE); RBC, URINE AUTO 0 /HPF (0-3); SPECIFIC GRAVITY URINE AUTO 1.006 (1.002-1.035); SQUAMOUS EPITHELIAL CELL UR AU 0 /HPF (0-6); UROBILINOGEN, URINE AUTO 0.2 mg/dL (0.0-2.0); WBC, URINE AUTO 0 /HPF (0-3)
== END ==
LOC: M SMT 12:49
PROVIDERS: ATTEND Nurse Practitioner Family
DX: N40.1 Benign prostatic hyperplasia with lower urinary tract symptoms (principal)

== ENCOUNTER → 2019-10-04 | Outpatient (CLI) | payer OTHER ==
[~2019-10-04] MED LIST changes: +BREO1INH3 INH; +DIPH25CA32 PO; +DOCU100C16 PO; +FERR325T3 PO; +FURO40TA2 PO; +INCR1INH INH; +K-TA10TA2 PO; +LOSA50TA88 PO; +MONT10TA4 PO; +MULT-40 PO; +NITR0.4S14 SL; +NITR100C2 PO; +NORV5TAB PO; +ONDA-83 PO; +OXYC10TA12 PO; +PAME25CA PO; +PROT1TAB2 PO; +RANO500T7 PO; +REST0.05 OU; +TRAZ-252 PO; +TRIL1TAB PO; +VITAD1000T PO
== END ==
LOC: M LABSMTC 10:23
PROVIDERS: ATTEND Anesthesiology
DX: Z01.812 Encounter for preprocedural laboratory examination (principal); Z11.59 Encounter for screening for other viral diseases; Z20.828 Contact with and (suspected) exposure to other viral communicable diseases

== ENCOUNTER 2019-10-07 12:53 | Day surgery (SDC) | payer OTHER ==
[~2019-10-07] VITALS: Ht 180.3 cm; Wt 114.8 kg
[~2019-10-07 12:53] MED LIST changes: -DOCU100C16 PO; +LR 1,000 ML IV ONE; -NITR100C2 PO; +ceFAZolin SOD 2 GM in IV 1 EA IV ONE
[2019-10-07] MEDS ORDERED: MIDAZOLAM INJ 2MG/2ML VIAL (J2250 PER 1MG) As Ordered ONE (14:08)
[2019-10-07] MEDS ORDERED: LIDOCAINE 2% 100MG/5ML SDV (FOR ANES.) As Ordered ONE ×3 (14:09→16:18)
[2019-10-07] MEDS ORDERED: dexameTHASONE 4 MG/ML 1ML VIAL (J1100 PER 1MG) As Ordered ONE (14:09)
[2019-10-07] MEDS ORDERED: ONDANSETRON 4MG/2ML VIAL As Ordered ONE (14:09)
[2019-10-07] MEDS ORDERED: propofoL 200 MG/20 ML VIAL As Ordered ONE (14:09)
[2019-10-07] MEDS ORDERED: fentaNYL 100 MCG/2 ML INJECTION (J3010) As Ordered ONE ×2 (14:09→16:46)
[2019-10-07] MEDS ORDERED: ROCURONIUM BROMIDE 50 MG/5 ML VIAL As Ordered ONE ×2 (14:09→16:36)
[2019-10-07] MEDS ORDERED: ACETAMINOPHEN 1000MG 100ML IV BTL (OFIRMEV) (J0131 PER 10MG) As Ordered ONE (14:55)
[2019-10-07] MEDS ORDERED: ALBUTEROL 6.7GM INHALER **FOR ANES. CART/OMNICELL ONLY As Ordered ONE (15:41)
[2019-10-07] MEDS ORDERED: FUROSEMIDE 100MG/10ML VIAL (J1940) As Ordered ONE (16:37)
[2019-10-07] MEDS ORDERED: SUGAMMADEX SODIUM 500 MG/5 ML VIAL (BRIDION) As Ordered ONE (16:45)
--- NOTE | 2019-10-07 17:03 | ROOPDOC ---
[facility] Report Of Operation Report of Operation DATE OF PROCEDURE: 10/07/19 PREPROCEDURE DIAGNOSIS: Benign prostatic hyperplasia. POSTPROCEDURE DIAGNOSIS: Benign prostatic hyperplasia. PROCEDURE: Cystoscopy, button transurethral electrovaporization of the prostate. SURGEON: Sridhar Jaramillo MD MAILING MACHINE HELPER: None. ANESTHESIA: General. OPERATIVE INDICATIONS: This is a 59-year-old male with benign prostatic hyperplasia and lower urinary tract symptoms refractory to medical therapy. He was brought to the operating room today for treatment. DESCRIPTION OF PROCEDURE: The patient was brought to the operating room and general anesthesia was induced. Prophylactic antibiotics were infused. He was placed in the dorsal lithotomy position and prepped and draped in the usual sterile fashion. At this point, I advanced a resectoscope into the urethra and into the bladder. Of note, the patient had bilobar benign prostatic hyperplasia. I made note of the location of both ureteral orifices, as well as the verumontanum. At this point, I began vaporizing hyperplastic tissue circumferentially at the bladder neck. I then vaporized hyperplastic tissue on both lateral lobes. I kept doing this until there was a clear channel established. Once there was a clear channel established, hemostasis was obtained using the coagulation current. Once satisfied with hemostasis, the resectoscope was removed and an 18-[place] Oakley catheter was inserted into the bladder. The balloon was filled with 15 mL of sterile water and then the catheter was connected to gravity drainage. This marked the conclusion of the procedure. The patient was taken out of the dorsal lithotomy position, awakened from anesthesia and transported to the recovery room in stable condition. Estimated blood loss:15 mL. Complications: None. Specimens: None. PLAN: The patient will followup in the clinic in approximately 1 week for catheter removal and a voiding trial. SRIDHAR JARAMILLO MD October 07, 2019 17:03
[2019-10-07] MEDS ORDERED: ONDANSETRON 4MG/2ML VIAL IV PRN ×2 (17:15→17:30)
[2019-10-07] MEDS ORDERED: ACETAMINOPHEN TAB 650MG DOSE (2X325MG) PO PRN (17:15)
[2019-10-07] MEDS ORDERED: MORPHINE 2 MG/ML 1ML VIAL (J2270) IV PRN (17:30)
[2019-10-07] MEDS ORDERED: METOCLOPRAMIDE INJ 10MG/2ML VIAL (J2765 PER 1) IV PRN (17:30)
[2019-10-07] MEDS ORDERED: LR 1,000 ML IV SCH (17:30)
[2019-10-07] MEDS ORDERED: fentaNYL 100 MCG/2 ML INJECTION (J3010) IV PRN (17:30)
[2019-10-07] MEDS ORDERED: MEPERIDINE INJ 25 MG/ML VIAL (J2175) IV PRN (17:30)
[2019-10-07] MEDS ORDERED: oxyCODONE 5MG TAB PO PRN (17:30)
[2019-10-07 18:23] VITALS: BP 144/88
[2019-10-07] MEDS: ASPIRIN 81 MG ENTERIC TAB PO SCH (18:37)
[2019-10-07] MEDS: oxyCODONE 5MG TAB PO PRN (18:39)
[2019-10-07] MEDS: COLCHICINE 0.6 MG TAB PO SCH (18:42)
[2019-10-07] MEDS: LOSARTAN 25 MG TAB PO SCH (18:42)
[2019-10-07] MEDS: ISOSORBIDE MON. (IMDUR) 60 MG XR TAB PO SCH (18:46)
[2019-10-07 19:47] VITALS: BP 163/91
[2019-10-07 19:50] VITALS: BP 140/78
[2019-10-07] MEDS: GABAPENTIN 300 MG CAP PO SCH (20:58)
[2019-10-07] MEDS: RANOLAZINE 500 MG ER TAB PO SCH (20:58)
[2019-10-07] MEDS: HYDROXYCHLOROQUINE 200 MG TAB PO SCH (20:58)
[2019-10-07] MEDS: OXcarbazepine 300 MG TAB PO SCH (20:59)
[2019-10-07] MEDS: PANTOPRAZOLE 40MG TAB (PROTONIX) PO SCH (20:59)
[2019-10-07] MEDS: DOCUSATE SODIUM 100 MG CAP PO SCH (20:59)
[2019-10-07] MEDS: POTASSIUM CHLORIDE 10 MEQ SR TABLET PO SCH (20:59)
[2019-10-07] MEDS: NITROFURANTOIN (MACROBID) 100 MG CAP PO SCH (20:59)
[2019-10-07] MEDS: CARVedilol 12.5 MG TAB PO SCH (20:59)
[2019-10-07] MEDS ORDERED: ATORVASTATIN 20 MG TAB PO SCH (21:00)
[2019-10-07] MEDS ORDERED: NORTRIPTYLINE 25 MG CAP PO SCH (21:00)
[2019-10-07] MEDS ORDERED: traZODone 100 MG TAB PO SCH (21:00)
[2019-10-07] MEDS ORDERED: LATANOPROST 0.005% OPHTH SOLN 2.5 ML OU SCH (21:00)
[2019-10-08] MEDS: oxyCODONE 5MG TAB PO PRN ×2 (00:52→08:33)
[2019-10-08] MEDS: GABAPENTIN 300 MG CAP PO SCH (05:49)
[2019-10-08 06:36] VITALS: BP 127/70
[2019-10-08] MEDS: OXcarbazepine 300 MG TAB PO SCH (08:30)
[2019-10-08] MEDS: DOCUSATE SODIUM 100 MG CAP PO SCH (08:30)
[2019-10-08] MEDS: RANOLAZINE 500 MG ER TAB PO SCH (08:30)
[2019-10-08] MEDS: NITROFURANTOIN (MACROBID) 100 MG CAP PO SCH (08:30)
[2019-10-08] MEDS: ISOSORBIDE MON. (IMDUR) 60 MG XR TAB PO SCH (08:30)
[2019-10-08] MEDS: ASPIRIN 81 MG ENTERIC TAB PO SCH (08:31)
[2019-10-08] MEDS: PANTOPRAZOLE 40MG TAB (PROTONIX) PO SCH (08:31)
[2019-10-08] MEDS: LOSARTAN 25 MG TAB PO SCH (08:31)
[2019-10-08] MEDS: POTASSIUM CHLORIDE 10 MEQ SR TABLET PO SCH (08:31)
[2019-10-08 08:32] VITALS: BP 127/70
[2019-10-08] MEDS: CARVedilol 12.5 MG TAB PO SCH (08:32)
[2019-10-08] MEDS: COLCHICINE 0.6 MG TAB PO SCH (08:32)
--- NOTE | 2019-10-08 08:43 | IPNPDOC ---
Subjective Review oF Systems Chief Complaint The patient is a 59-year-old male admitted with a reason for visit of Benign Prostastic Hyperplasia. Events since Last Encounter No acute events o/n. Patient denies pain. Has not ambulated since surgery. Tolerating diet. No f/c/ns. Objective Physical Examination General Exam: Alert, Cooperative, No Acute Distress ABDOMEN EXAM: Soft Skin Exam: Nl turgor and temperature Neuro Exam: Normal Speech Psych Exam: Mental status NL, Mood NL Other physical findings catheter draining light pink urine Vital Signs/I&O Vital Signs Date Time Temp Pulse Resp B/P (MAP) Pulse Ox O2 Delivery O2 Flow Rate FiO2 10/08/19 08:33 18 Room Air 10/08/19 08:32 72 127/70 10/08/19 06:36 97.9 94 10/07/19 17:56 2 I&O- Last 24 Hours up to 6 AM 10/08/19 06:00 Intake Total 1610 ml Output Total 900 ml Balance 710 ml Laboratory Data Labs 24H Laboratory Tests 2 10/07/19 13:56: Bedside Glucose (Misc Panel) 111H 10/07/19 19:54: Bedside Glucose (Misc Panel) 131H FSBS Laboratory Tests Test 10/07/19 13:56 10/07/19 19:54 Range/Units Bedside Glucose (Misc Panel) 111 131 70-105 MG/DL Assessment/Plan Date Seen The patient was seen on 10/08/19. Patient Summary This is a 59 y/o M POD1 s/p cysto w/ button TURP. He is doing well. Catheter is draining well. Plan/VTE VTE Prophylaxis Ordered?: Yes VTE Exclusion Mechanical Proph: N/A:VTE Prophy Ordered Plan/Urinary Catheter Urinary Catheter: Other Catheter: (catheter will need to stay in for 5-7 days) Plan - ambulate - regular diet - continue home meds except plavix - discharge home today w/ catheter SRIDHAR JARAMILLO MD October 08, 2019 08:43
[2019-10-08] MEDS ORDERED: NITR100C2 PO (08:47)
[2019-10-08] MEDS: HYDROXYCHLOROQUINE 200 MG TAB PO SCH (09:00)
[2019-10-08] MEDS ORDERED: BREO ELLIPTA INH SCH (09:00)
[2019-10-08] MEDS ORDERED: INCRUSE ELLIPTA 62.5MCG (PATIENT'S OWN MED) INH SCH (09:00)
[2019-10-08] MEDS ORDERED: FUROSEMIDE 20 MG TAB PO SCH (09:00)
[2019-10-08] MEDS ORDERED: amLODIPine 5 MG TAB PO SCH (09:00)
[2019-10-08] MEDS ORDERED: DOCU100C16 PO (10:05)
== END 2019-10-08 14:17 | disposition home or self-care (01) ==
LOC: M SDC 12:53 → M MS5PR 18:20 → M SDC 10-08 14:17
PROVIDERS: ATTEND Urology
DX: N40.1 Benign prostatic hyperplasia with lower urinary tract symptoms (principal); I10 Essential (primary) hypertension; E78.5 Hyperlipidemia, unspecified; E11.9 Type 2 diabetes mellitus without complications; M32.10 Systemic lupus erythematosus, organ or system involvement unspecified; G47.30 Sleep apnea, unspecified; Z79.02 Long term (current) use of antithrombotics/antiplatelets; Z88.2 Allergy status to sulfonamides; Z88.8 Allergy status to other drugs, medicaments and biological substances; Z91.040 Latex allergy status; Z91.018 Allergy to other foods
CPT/HCPCS: 52601; J0131; J0690; J1100; J1940; J2250; J2405; J2765; J3010

== ENCOUNTER → 2019-11-15 | Outpatient (REF) | payer OTHER ==
[~2019-11-15] MED LIST changes: +DOCU100C16 PO; -LR 1,000 ML IV ONE; +NITR100C2 PO; -ceFAZolin SOD 2 GM in IV 1 EA IV ONE
[2019-11-15 18:44] LABS: APPEARANCE, URINE CLEAR (CLEAR); BACTERIA, URINE AUTO NEGATIVE (NEGATIVE); BILIRUBIN, URINE AUTO NEGATIVE (NEGATIVE); BLOOD, URINE BLOOD 3+ (NEGATIVE); COLOR, URINE YELLOW (YELLOW); GLUCOSE, URINE (UA) AUTO NEGATIVE (NEGATIVE); KETONE, URINE AUTO NEGATIVE (NEGATIVE); LEUKOCYTE ESTERASE, URINE AUTO 3+ (NEGATIVE); NITRITE, URINE AUTO NEGATIVE (NEGATIVE); PROTEIN, URINE AUTO NEGATIVE (NEGATIVE); RBC, URINE AUTO 61 /HPF (0-3); SPECIFIC GRAVITY URINE AUTO 1.005 (1.002-1.035); SQUAMOUS EPITHELIAL CELL UR AU 0 /HPF (0-6); UROBILINOGEN, URINE AUTO 0.2 mg/dL (0.0-2.0); WBC, URINE AUTO 37 /HPF (0-3)
== END ==
LOC: M SMT 16:47
PROVIDERS: ATTEND Nurse Practitioner Family
DX: N40.1 Benign prostatic hyperplasia with lower urinary tract symptoms (principal)

== ENCOUNTER 2022-01-02 11:18 | Emergency (ER) | payer OTHER ==
[~2022-01-02] VITALS: Ht 180.3 cm; Wt 124.5 kg
[~2022-01-02 11:18] MED LIST changes: -AMLO10TA5 PO; +AMLO1TAB25 PO; +GABA-282 PO; -GABA-843 PO; +ISOS1TAB36 PO; -ISOS60TA2 PO; -KLOR10TA76 PO; +LOSA50TA28 PO; -LOSA50TA88 PO; -MONT10TA4 PO; +MONT10TA97 PO; +PANT40TA29 PO; -PANT40TA3 PO; +POTA-136 PO; +VITA100093 PO; -VITAD1000T PO
[2022-01-02] MEDS ORDERED: ASPIRIN 81 MG CHEW TABLET PO ONE (11:35)
[2022-01-02 12:11] LABS: BASO # 0.1 10^3/uL (0.0-0.2); BASO % 0.4 % (0.0-1.0); EOS % 0.3 % (0.0-3.0); HEMATOCRIT 39.9 % (42.0-52.0); HEMOGLOBIN 13.1 g/dl (13.5-17.5); LYMPH # 1.5 10^3/uL (1.5-5.0); LYMPH % 13.4 % (24.0-44.0); MEAN CORPUSCULAR HEMOGLOBIN 29.4 pg (27.0-33.0); MEAN CORPUSCULAR HGB CONC 32.8 g/dl (32.0-36.5); MEAN CORPUSCULAR VOLUME 89.5 fl (80.0-96.0); MONO # 0.5 10^3/uL (0.0-0.8); MONO % 4.6 % (2.0-8.0); NEUTROPHILS # 9.2 10^3/uL (1.5-8.5); NEUTROPHILS % 80.3 % (36.0-66.0); PLATELET COUNT, AUTOMATED 213 10^3/uL (150-450); RED BLOOD COUNT 4.46 10^6/uL (4.30-6.10); WHITE BLOOD COUNT 11.5 10^3/uL (4.0-10.0)
[2022-01-02 12:44] LABS: CK-MB VALUE MASS 2.6 NG/ML (<3.6); MB/CK RELATIVE INDEX 2.03 (< OR =4)
[2022-01-02 12:56] LABS: ALBUMIN 3.2 GM/DL (3.2-5.2); BILIRUBIN,DIRECT 0.2 MG/DL (0.0-0.2); BILIRUBIN,TOTAL 0.5 MG/DL (0.2-1.0); CREATININE FOR GFR 1.56 MG/DL (0.70-1.30); GLOMERULAR FILTRATION RATE 48.6 (>49); POTASSIUM SERUM 4.2 MEQ/L (3.5-5.1); TOTAL PROTEIN 6.8 GM/DL (6.4-8.2)
[2022-01-02 18:47] VITALS: BP 161/84
[2022-01-02] MEDS ORDERED: MORPHINE 2 MG/ML 1ML VIAL IV ONE (19:00)
== END 2022-01-02 19:07 | disposition short-term general hospital (02) ==
LOC: EDBD 11:18 → M ED 11:18
DX: I20.0 Unstable angina (principal); I10 Essential (primary) hypertension; E78.5 Hyperlipidemia, unspecified; I25.10 Atherosclerotic heart disease of native coronary artery without angina pectoris; M32.9 Systemic lupus erythematosus, unspecified; Z79.899 Other long term (current) drug therapy; Z79.82 Long term (current) use of aspirin
CPT/HCPCS: 71045; 80048; 80076; 82550; 82553; 83690; 85025; 87486; 87581; 87633; 87798; 93005; 93041; 94760; 96374; 99285; J2270